=== PATIENT | male | born 1950 | race Hispanic/Latino ===

== ENCOUNTER → 2024-12-18 | Outpatient (CLI) | payer MEDICARE | END | disposition home or self-care (01) | LOC: RAH 14:17 | PROVIDERS: ATTEND Internal Medicine Cardiovascular Disease | DX: I51.7 Cardiomegaly (principal); R01.1 Cardiac murmur, unspecified | CPT/HCPCS: 93306 ==

== ENCOUNTER → 2024-12-22 | Outpatient (CLI) | payer MEDICARE | END | disposition home or self-care (01) | LOC: SHCH 14:03 → EDUNIT# 14:20 | PROVIDERS: ATTEND Internal Medicine Cardiovascular Disease | DX: I87.1 Compression of vein (principal); R06.9 Unspecified abnormalities of breathing | CPT/HCPCS: 93970 ==

== ENCOUNTER → 2025-01-05 | Outpatient (CLI) | payer OTHER ==
--- NOTE | 2025-01-06 00:24 | HMCIMG ---
CT HEART SAVER PROMOTIONAL HISTORY: Calcium scoring COMPARISON: None TECHNIQUE: Computed tomography of the heart was performed with ECG gating and suspended respiration. Postprocessing was performed on a computer workstation to obtain diastolic phase images, determine calcium score and provide a quantitative assessment of extent of disease. This CT included only the heart. HeartSaver score is 2855.40. Please see cardiac calcium score report. The available CT chest images show no acute finding. CT was performed with one or more following dose reduction techniques: automated exposure control, adjustment of the mA and kv according to patient's size, or use of a iterative reconstruction technique.
== END | disposition home or self-care (01) ==
LOC: EDUNIT# 13:00 → RAH 14:52
PROVIDERS: ATTEND Internal Medicine Cardiovascular Disease
DX: Z13.6 Encounter for screening for cardiovascular disorders (principal)
CPT/HCPCS: 75571

== ENCOUNTER 2025-02-02 05:34 | Day surgery (SDC) | payer MEDICARE ==
[2025-01-31 09:45] VITALS: BP 144/77; PULSE 63; RESP 18; TEMP 97.2
--- NOTE | 2025-01-31 09:48 | EKG ---
Formerly [facility] Test Date: 2025-01-31 Test Time: 09:39:53 Pat Name: SARAH SWENSON Department: [facility] Room: [facility] Gender: M [employer] Manager: [id number] : 1950 Requested By: GALINA LACY Order Number: [id number] Reading MD: Galina Mora Measurements Intervals Angie Rate: 54 P: -5 NH: 186 QRS: 42 QRSD: 123 T: 6 QT: 461 QTc: 436 Interpretive Statements Sinus rhythm IVCD, consider RBBB No previous ECG available for comparison LOW VOLTAGE THROUGHOUT Electronically Signed On 02-05-2025 07:32:54 CDT by Galina Mora Please click the below link to view image of tracing.
[2025-01-31 09:51] LABS: BASOPHILS # (AUTO) 0.05 K/uL (0.00-0.20); BASOPHILS % (AUTO) 0.6 % (0.0-5.0); EOSINOPHILS # (AUTO) 0.25 K/uL (0.00-0.70); EOSINOPHILS % (AUTO) 2.8 % (0.0-8.0); HEMATOCRIT 46.9 % (42-54); IMMATURE GRANULOCYTE ABSOLUTE 0.07 K/uL (0-1); LYMPHOCYTES # (AUTO) 1.7 K/uL (1.0-4.8); LYMPHOCYTES % (AUTO) 18.2 % (21.0-51.0); MEAN CORPUSCULAR HEMOGLOBIN 26.8 pg (27.0-33.0); MEAN CORPUSCULAR VOLUME 81.1 fL (79-99); MONOCYTES # (AUTO) 0.8 K/uL (0.1-1.0); MONOCYTES % (AUTO) 8.4 % (3.0-13.0); NEUTROPHILS # (AUTO) 6.3 K/uL (1.8-7.7); NEUTROPHILS % (AUTO) 69.2 % (40.0-77.0); PLATELET COUNT (AUTO) 246 K/uL (130-400); RED BLOOD CELL COUNT(AUTO) 5.78 MIL/uL (4.50-6.20); RED CELL DISTRIBUTION WIDTH 14.5 % (11.0-15.5); WHITE BLOOD COUNT (AUTO) 9.1 K/uL (4.8-10.8)
[2025-01-31 09:58] LABS: APPEARANCE,URINE CLEAR (CLEAR); BILIRUBIN,URINE NEGATIVE (NEGATIVE); COLOR,URINE LIGHT-YELLOW (YELLOW); GLUCOSE, URINE (UA) >=1000 mg/dL (NEGATIVE); KETONES,URINE NEGATIVE (NEGATIVE); LEUKOCYTE ESTERASE ,URINE NEGATIVE Leu/uL (NEGATIVE); NITRATE,URINE NEGATIVE (NEGATIVE); OCCULT BLOOD,URINE NEGATIVE (NEGATIVE); PROTEIN,URINE NEGATIVE (NEGATIVE); UROBILINOGEN,URINE 0.2 mg/dL (0.2-1.0)
[2025-01-31 09:59] LABS: CREATININE 1.3 mg/dL (0.5-1.3); POTASSIUM 4.3 mmol/L (3.5-5.1)
[2025-01-31 10:01] LABS: ADD UA MICROSCOPIC YES
[2025-01-31 10:03] LABS: INR 0.95 (0.85-1.15); PROTHROMBIN TIME 10.1 SEC (9.6-11.6)
[2025-01-31 10:04] LABS: PARTIAL THROMBOPLASTIN TIME 27.8 SEC (26.3-35.5)
[2025-01-31 10:17] LABS: B-TYPE NATRIURETIC PEPTIDE 35 pg/mL (0-100)
[2025-01-31 10:18] LABS: SQUAMOUS EPITHELIAL CELL,UR RARE /HPF (0-2); WBC,URINE 0-1 /HPF (0-1)
[2025-01-31 10:22] LABS: BACTERIA,URINE None Seen /HPF (None Seen); YEAST,URINE BUDDING Rare /HPF (None Seen)
--- NOTE | 2025-01-31 11:09 | HMCIMG ---
CHEST 1VW HISTORY: Preop COMPARISON: None FINDINGS: A frontal projection of the chest was obtained. No acute pulmonary infiltrates is seen. The heart is borderline enlarged. Prominent interstitial markings are seen. Degenerative changes are seen. Aortic calcifications are seen. IMPRESSION: 1. No acute pulmonary infiltrate is seen.
[2025-02-02] VITALS (10 sets, daily range): BP systolic 132–181; BP diastolic 65–94; PULSE 47–64; RESP 10–21; TEMP 97–97.7
[~2025-02-02] VITALS: Ht 172.7 cm; Wt 137.9 kg
[~2025-02-02 05:34] MED LIST: ALLO100T PO; ASPI-1197 PO; ATEN1TAB3 PO; ATOR10TA69 PO; DAPA10TA PO; DUTA0.5C37 PO; LEVO75TA10 PO; METF-910 PO; TAMS-55 PO; VITAD50000 PO
[2025-02-02] MEDS: 0.9%NACL 1000ML 1,000 ML IV SCH (06:38)
[2025-02-02] MEDS ORDERED: LIDOCAINE HCL 400MG/20ML VIAL ONE (07:10)
[2025-02-02] MEDS ORDERED: HEParin 10,000 UNIT/10ML (1,000 UNIT/ML) VIAL ONE (07:10)
[2025-02-02] MEDS ORDERED: IOHEXOL 350 MG/ML 100ML INFUS..BTL IV ONE ×2 (07:10→09:41)
[2025-02-02] MEDS ORDERED: HEParin-NS 1,000 UNIT/500 ML 1,000 ML IV ONE (07:11)
[2025-02-02] MEDS ORDERED: NITROGLYCERIN 50MG VIAL ONE (07:11)
[2025-02-02] MEDS ORDERED: MIDAZOLAM HCL 1 MG/ML 2ML VIAL ONE (07:12)
[2025-02-02] MEDS ORDERED: FENTanyl CITRate PF 50 MCG/1 ML 2ML VIAL ONE (07:12)
[2025-02-02] MEDS ORDERED: niCARDIpine 25MG INJ IV ONE (07:40)
[2025-02-02] MEDS ORDERED: ATROPINE 1MG SYG IVP ONE (08:37)
[2025-02-02] MEDS ORDERED: IOHEXOL-350 50ML VIAL IV ONE (09:41)
[2025-02-02] MEDS ORDERED: ASPIRIN 81MG CHEW TAB ONE (09:46)
[2025-02-02] MEDS ORDERED: cloPIDOgrel 300MG TAB ONE (09:47)
[2025-02-02] MEDS ORDERED: DEXTROSE 50%-WATER 50 ML DISP.SYRIN IV PRN (10:30)
[2025-02-02] MEDS ORDERED: GLUCAGON 1MG KIT 1 MG ML IM PRN (10:30)
[2025-02-02] MEDS ORDERED: 0.9%NACL 1000ML 1,000 ML IV SCH (10:30)
--- NOTE | 2025-02-02 10:46 | PRN ---
PROCEDURE NOTE Indications: BETTENCOURT High calcium score (2855) done on 01/05/2025 Normal left ventricle systolic function (LVEF 60% by echocardiogram done on 12/21/2023) COPD Procedures: Coronary angiogram, IVUS assessment of the LAD, PCI with balloon angioplasty and NOAH placement in the OM 1 Introduction: After informed written consent was obtained, the patient was brought to the Catheterization Lab in the usual fasting state. Following sterile prep and drape, a time out was performed, then moderate sedation was administered, 1mg of Versed and 25mcg of Fentanyl, then 1% Lidocaine was infiltrated into the right wrist. Using a Modified Seldinger technique, a 6Fr Sheath was inserted into the right radial artery. While under fluoroscopic guidance, diagnostic coronary catheters were advanced over a wire into the central circulation where they were aspirated, flushed and placed to pressure monitoring, once the wire was removed. Coronary Angio: The left and right coronary arteries were engaged with appropriate catheters and angiography was performed under continuous pressure monitoring. Cardiac Findings: Right dominant system LM: Large caliber vessel with mild luminal irregularities. The vessel bifurcates into the LAD and LCX. LAD: Large caliber vessel with 50% stenosis in the ostial and proximal LAD. The rest of the vessel has mild luminal irregularities. Diagonal 1: Small caliber vessel mild luminal irregularities LCx: Large caliber vessel with 30% stenosis in the proximal LCX. The rest of the vessel has mild luminal irregularities. Ramus: Medium caliber vessel with 50% stenosis in the ostial ramus. OM1: Medium caliber vessel with 80% stenosis in the mid one OM2: Small caliber vessel mild luminal irregularities RCA: Medium caliber vessel with diffuse 30% stenosis in the mid and distal RCA. RPDA: Small caliber vessel with 70% stenosis in the distal RPDA RPLV: Small caliber vessel about the would irregularities Medications given: Versed 2mg, Fentanyl 50mcg, 10,000 units, nitroglycerin 200mcg, nicardipine 400mcg, clopidogrel 600 mg x 1 dose and aspirin 325 mg x 1 dose Coronary Intervention: Guide catheter: JL 3.5 Guidewire: 0.014 run-through After the above-mentioned findings decision was made to further evaluate the LAD. The patient was administered an additional 5000 units of heparin. We then advanced a JL 3.5 guide catheter into the ostium of the left main. We then advanced the 0.014 runthrough guidewire across the area stenosis and into the distal LAD. We then performed IVUS assessment of the LAD which revealed a 50% stenosis in the ostial and proximal LAD. The decision was made to treat the stenosis in the LAD conservatively, with medical management. We then pulled back the wire and advanced it into the distal OM1. We then performed balloon angioplasty (2.5 x 12 mm) and NOAH placement ([employer]tronic Saritha [place] 2.5 x 15 mm) in the mid OM1. The stent delivery system was then pulled back and repeat angiography was performed, which revealed a widely patent stent in the mid OM1 and TAVON 3 blood flow distally. The 0.014 runthrough guidewire and JL 3.5 guide catheter were then removed. Complications: None Conscious Sedation Monitoring: Under my direct order and supervision, medication for moderate conscious sedation was administered by the nursing staff and the patients level of consciousness and physiological status was monitored by an independent trained nurse. Closure of Access Site: After the case was complete the sheath was pulled and a TR band was applied to the right radial artery without issue or complication. Conclusion: 1. BETTENCOURT (anginal equivalent) 2. Branch vessel CAD (80% stenosis in the mid OM1 and 70% stenosis in the distal RPDA), s/p successful PCI with balloon angioplasty (2.5 x 12 mm) and NOAH placement ([employer]tronic saritha [place] 2.5 x 15 mm) in the mid OM1. 3. Nonobstructive CAD, 50% stenosis in the ostial and proximal LAD, assessed with IVUS 4. High calcium score of 2855 done on 01/05/2025 5. Normal left ventricle systolic function (LVEF 60% by echocardiogram done on 12/21/2023) 6. COPD Recommendation: 1. Continue goal directed medical therapy 2. Start clopidogrel 75 mg daily. The patient will continue aspirin 81 mg daily. He will remain on DAPT for a minimum of six months and optimally one year 3. Please an act TR band removal protocol 4. Start NS at 100 mL/hour x3 hours. 5. Wrist precautions 6. 4 hours of bedrest 7. Okay to DC once the TR band removal protocol has been complete in the right wrist is soft, and free of bruising, bleeding, and or hematoma formation. GALINA LACY MD February 02, 2025 10:46
[2025-02-02] MEDS: PANTOPrazole 40 MG TAB DR PO ONE (11:10)
[2025-02-02] MEDS: ondanSETRON 4MG INJ IVP ONE (11:10)
--- NOTE | 2025-02-02 12:50 | NUR ---
VASC BAND: REMOVED VASC BAND WITH NO ACTIVE BLEEDING PRESENT. CLEANSED AREA WITH CHLORAPREP FOLLOWED BY APLYING STERILE 2X2 GAUZE THAN 2X2 TEGADERM. NO REDNESS/SWELLING NOTED TO SURROUNDING AREA RT WRIST.
== END 2025-02-02 13:45 | disposition home or self-care (01) ==
LOC: DAH 05:34
PROVIDERS: ATTEND Internal Medicine Cardiovascular Disease
DX: I25.10 Atherosclerotic heart disease of native coronary artery without angina pectoris (principal); I10 Essential (primary) hypertension; E11.9 Type 2 diabetes mellitus without complications; E03.9 Hypothyroidism, unspecified; R01.1 Cardiac murmur, unspecified; R06.09 Other forms of dyspnea; J44.9 Chronic obstructive pulmonary disease, unspecified; E66.01 Morbid (severe) obesity due to excess calories; M06.9 Rheumatoid arthritis, unspecified; Z68.42 Body mass index [BMI] 45.0-49.9, adult; Z79.01 Long term (current) use of anticoagulants; Z79.899 Other long term (current) drug therapy; Z79.84 Long term (current) use of oral hypoglycemic drugs; Z79.890 Hormone replacement therapy; Z98.49 Cataract extraction status, unspecified eye; Z98.890 Other specified postprocedural states
CPT/HCPCS: 80048; 83880; 85025; 85610; 85730; 81001; 36415; 71045; 93005; 92978; 93454; 99156; 99157 ×4; 85347; 82948 ×2; A6260; A6206; C9600; C1769 ×2; C1887 ×2; C1894 ×2; C1725; C1874; A4649; C1753; Q9965 ×2; J3010; J3490 ×3; J7030; J1644 ×2; J2250; J2405; Q9967 ×2; A4215; A4222; A4221; A4663; A4216; A4606; A4223 ×3; 96360; 96361; J0461